=== PATIENT | female | born 1955 | race Hispanic/Latino ===

== ENCOUNTER → 2019-07-13 | Outpatient (CLI) | payer MEDICARE ==
[~2019-07-13] VITALS: Ht 160 cm; Wt 72.5 kg
[~2019-07-13] MED LIST: AEC81 PO; AMLO10TA7 PO; APIX2.5T PO; ATEN50TA PO; BENA20TA10 PO; CEFAZOLIN SODIUM 1 GM VIAL IVP SCH; DEXAMETHASONE SOD PHOSPHATE 10MG/ML 1ML VIAL ONE; FENTANYL CITRATE PF 50 MCG/1 ML 5ML AMP IV ONE; FLUO40CA49 PO; GABA-531 PO; GLYCOPYRROLATE 1 MG/5 ML SYRINGE ONE; INSU100I14 SQ; INSU100I35 SQ; LIDOCAINE PF 2% 5ML ABBOJECT ONE; LIRA0.6P2 SQ; MECL-111 PO; METF-444 PO; MIDAZOLAM HCL 1 MG/ML 2ML VIAL ONE; NEOSTIGMINE 5MG/5ML SYR IV ONE; OLME1TAB42 PO; ONDA8TAB5 PO; ONDANSETRON HCL 4 MG/2 ML VIAL ONE; PREM625 PO; PROPOFOL 10 MG/ML 20ML VIAL IV ONE; ROCURONIUM 10MG/1ML SYR 10 MG/ML ML ONE; SIMV10TA97 PO; TIZA4TAB5 PO; TYL3 PO
[2019-07-13 11:49] LABS: BASOPHILS % (AUTO) 0.5 % (0.0-5.0); EOSINOPHILS % (AUTO) 2.5 % (0.0-8.0); LYMPHOCYTES % (AUTO) 30.3 % (21.0-51.0); MEAN CORPUSCULAR HEMOGLOBIN 29.5 pg (27.0-33.0); MEAN CORPUSCULAR HGB CONC 33.9 g/dL (32.0-36.0); MONOCYTES % (AUTO) 5.3 % (3.0-13.0); NEUTROPHILS % (AUTO) 61.4 % (40.0-77.0); PLATELET COUNT (AUTO) 235 K/uL (130-400); RED BLOOD CELL COUNT(AUTO) 4.59 MIL/uL (4.00-5.50); RED CELL DISTRIBUTION WIDTH 14.2 % (11.0-15.5); WHITE BLOOD COUNT (AUTO) 8.6 K/uL (4.8-10.8)
[2019-07-13 11:55] LABS: POTASSIUM 4.3 mmol/L (3.5-5.1)
[2019-07-13 12:45] VITALS: BP 148/73
== END ==
LOC: EDSTATUS 06-15 12:00 → DAH 10:00 → EDSTATUS 07-14 09:00
DX: Z01.818 Encounter for other preprocedural examination (principal); M23.204 Derangement of unspecified medial meniscus due to old tear or injury, left knee; M17.12 Unilateral primary osteoarthritis, left knee; I10 Essential (primary) hypertension; E78.5 Hyperlipidemia, unspecified; F32.9 Major depressive disorder, single episode, unspecified; E11.40 Type 2 diabetes mellitus with diabetic neuropathy, unspecified; Z79.84 Long term (current) use of oral hypoglycemic drugs; Z79.82 Long term (current) use of aspirin; Z79.4 Long term (current) use of insulin; Z79.899 Other long term (current) drug therapy; Z90.710 Acquired absence of both cervix and uterus; Z96.651 Presence of right artificial knee joint; Z88.8 Allergy status to other drugs, medicaments and biological substances; Z91.018 Allergy to other foods; Z82.49 Family history of ischemic heart disease and other diseases of the circulatory system; Z83.3 Family history of diabetes mellitus
CPT/HCPCS: 36415; 71045; 80048; 85025; A6260; J1100; J2001; J2250; J2405; J2704; J2710; J3010; J3490